=== PATIENT | female | born 1970 | race Caucasian/White ===

== ENCOUNTER 2023-05-13 07:50 | Outpatient (CLI) | payer BC ==
[2023-05-13] VITALS (18 sets, daily range): BP systolic 95–136; BP diastolic 38–95
== END 2023-05-13 23:59 | disposition home or self-care (01) ==
LOC: CARD DIAG 07:50
PROVIDERS: ATTEND Internal Medicine Interventional Cardiology
DX: I95.9 Hypotension, unspecified (principal)
CPT/HCPCS: 93660